=== PATIENT | female | born 1975 | race Caucasian/White ===

== ENCOUNTER 2024-09-18 08:06 | Emergency (ER) | payer OTHER, SELFPAY ==
[2024-09-18 08:21] VITALS: BP 121/78; PULSE 117; RESP 16; TEMP 36.9; O2SAT 97
--- NOTE | 2024-09-18 08:22 | ED_ITS ---
HPI - URI/Sore Throat General Chief Complaint: Upper Respiratory Infection Stated Complaint: cough,chest congestion,fever Time Seen by Provider: 09/18/24 08:22 Source: patient, RN notes reviewed and old records reviewed Mode of arrival: ambulatory Limitations: no limitations History of Present Illness HPI Narrative: Patient presents with complaints fever, cough, congestion. She reports that symptoms became much worse than they had been 5 days ago. She states that she has been sick off and on since July, but has been ?fighting it off?. Saturday she awakened with fever of 101, has been taking Tylenol and NyQuil. She reports headache but only with cough. She reports right-sided back pain, cough that is minimally productive. Shortness of breath with some activity, more tired than usual. She is not any distress, including respiratory distress. She denies any injury or trauma Related Data Allergies Allergy/AdvReac Type Severity Reaction Status Date / Time No Known Allergies Allergy Verified 09/18/24 08:24 Review of Systems Review of Systems: All systems reviewed & are unremarkable except as noted in HPI and below Constitutional: Constitutional: Reports no additional constitutional complaints, Reports fever(s), Reports headache(s) and Reports lethargy ENT: Reports system reviewed and no additional complaints, except as documented, Reports nasal congestion and Reports nasal discharge Cardiovascular: Cardiovascular: Reports no additional cardiovascular complaints Respiratory: Respiratory: Reports no additional respiratory complaints, Reports chest congestion, Reports cough, Reports pain with cough and Reports dyspnea Gastrointestinal: Gastrointestinal: Reports no additional gastrointestinal complaints PMFSH Comments At the time of my signature, I reviewed and agree with the nursing past medical, surgical, social, and family history. There is no relevant family history pertinent to the patient complaint. Exam Const: General: cooperative, no acute distress, alert, awake and uncomfortable Orientation/consciousness: oriented to person, oriented to place and oriented to time HENMT: Head: normal to inspection Mouth: Yes moist mucous membranes Resp: Effort & Inspection: normal respiratory effort and able to speak in complete sentences Auscultation: clear to auscultation bilaterally, crackles on the right at the base, no rales, no rhonchi and no wheezes Cardio: Palpation: normal PMI Rate: regular rate and tachycardic Rhythm: regular rhythm Heart sounds: S1 normal heart sound present and S2 normal heart sound present Neuro: General: oriented to person, oriented to place and oriented to time Cranial nerves: Yes CN's II-XII intact bilaterally Psych: Appearance: grossly normal Thought process: Normal thought process present Insight: Good insight present (Psych) Judgement: Good judgement present (Psych) Course Course Level of Care: Express Care Visit Vital Signs Vital signs: Vital Signs Temperature 98.5 F 09/18/24 08:21 Pulse Rate 117 H 09/18/24 08:21 Respiratory Rate 16 09/18/24 08:21 Blood Pressure 121/78 09/18/24 08:21 Pulse Oximetry 97 09/18/24 08:21 Oxygen Delivery Room Air 09/18/24 08:21 Temperature 98.5 F 09/18/24 08:21 Pulse Rate 117 H 09/18/24 08:21 Respiratory Rate 16 09/18/24 08:21 Blood Pressure 121/78 09/18/24 08:21 Pulse Oximetry 97 09/18/24 08:21 Oxygen Delivery Room Air 09/18/24 08:21 Reviewed MDM - URI/Sore Throat MDM Narrative Medical decision making narrative: History and exam consistent with atypical pneumonia that is prevalent in the community at this time. Patient is nontoxic appearing and stable for discharge home with p.o. antibiotic therapy along with steroids and bronchodilator. Work note provided. Discharge instructions reviewed with patient, as well as provided in writing per nursing staff. The instructions also include specific and strict return/GO TO THE ER as well as f/u information. All questions have been answered, and the patient deny any further questions with discharge and discharge plan. Some parts of this dictation were generated by voice recognition software and may contain typographical and/or grammatical inaccuracies. Differential Diagnosis Differential diagnosis: Likely upper respiratory infection, sinusitis and viral infection Medical Records Attestation: I reviewed the patient's medical records. Discharge Plan Discharge Clinical Impression: Atypical pneumonia Patient Disposition: Home, Self-Care Condition: Stable Instructions: Antibiotic Form, Community Acquired Pneumonia (ED) Additional Instructions: Take medications as prescribed. Follow-up with primary care provider. Emergency department for any new or worse symptoms Patient Language: [place]an Prescriptions: New azithromycin 250 mg tablet See Rx Instructions .ROUTE .COMPLEX Qty: 6 0RF Rx Instructions: For 250 mg dose pack: take 500 mg today (day 1), then 250 mg for 4 days (days 2-5) prednisone 50 mg tablet 50 mg PO DAILY Qty: 5 0RF albuterol sulfate [Ventolin HFA] 90 mcg/actuation HFA aerosol inhaler 2 puff inhalation QID PRN (Reason: shortness of breath or wheezing) Qty: 8.5 0RF Follow-up/Referrals: Mike,TOMMY Paredes [Primary Care Provider] - Stand Alone Forms: Work/School Release IP Time of Disposition: 08:36
== END 2024-09-18 08:42 | disposition home or self-care (01) ==
PROVIDERS: Emergency Provider Nurse Practitioner Family; PCP Physician Assistant
DX: J18.9 Pneumonia, unspecified organism (principal)
CPT/HCPCS: 99203; G0463

== ENCOUNTER 2025-03-17 12:38 | Outpatient (CLI) | payer OTHER, SELFPAY ==
--- NOTE | ~2025-03-17 | MM_ITS ---
EXAMINATION: MM screening sim BI w kiah HISTORY: Screening TECHNIQUE: Craniocaudal and mediolateral oblique 3-D tomosynthesis images were obtained and synthetic 2-D images were generated. CAD analysis was submitted and interpreted. COMPARISON: No prior mammogram is available for comparison at this institution. BREAST PARENCHYMAL COMPOSITION: Not dense: There are scattered areas of fibroglandular density. FINDINGS: There is no evidence of suspicious mass, calcification, or architectural distortion to sugg est malignancy in either breast. There has been no suspicious interval change. IMPRESSION: 1. No mammographic evidence of malignancy. 2. Recommend routine screening mammography in one year. BI-RADS Category 1: Negative Reviewed, dictated and finalized at location A.
--- NOTE | ~2025-03-17 | US_ITS ---
Pelvic ultrasound. Clinical History: Abnormal bleeding Technique: Realtime transabdominal and transvaginal scanning of the pelvis was performed. Color flow Doppler and Doppler spectral analysis were performed. Findings: The uterus is anteverted. The endometrial stripe has a thickness of 7 mm. No focal mass is identified. Neither ovary seen. No adnexal mass seen. There is no evidence of free fluid in the cul de sac. Impression: No significant abnormality seen. Reviewed, dictated and finalized at location . Impression: No significant abnormality seen.
== END 2025-03-17 12:39 | disposition home or self-care (01) ==
PROVIDERS: PCP Physician Assistant; Visit Provider Physician Assistant
DX: Z12.31 Encounter for screening mammogram for malignant neoplasm of breast (principal); N93.9 Abnormal uterine and vaginal bleeding, unspecified
CPT/HCPCS: 76830; 76856; 77063; 77067